=== PATIENT | female | born 1930 | race Caucasian/White ===

== ENCOUNTER 2018-08-07 14:00 | Inpatient (IN) ==
[2018-08-07] MEDS ORDERED: Lactulose Oral Soln 20 GM/30 ML UDC PO PRN (15:22)
[2018-08-07] MEDS ORDERED: Magic Mouthwash 10 ML UD Cup PO PRN (15:22)
[2018-08-07] MEDS ORDERED: Benzonatate 100 MG CAPSULE PO PRN (15:22)
[2018-08-07] MEDS ORDERED: Nystatin SUSP 5 ML UD.LIQ PO PRN (15:22)
[2018-08-07] MEDS ORDERED: Ondansetron ODT 4 MG TAB.RAPDIS SL PRN (15:22)
[2018-08-07] MEDS ORDERED: Pembrolizumab 100 MG/4 ML MG IV SCH (15:30)
[2018-08-07] MEDS ORDERED: GuaiFENesin/Codeine Oral Soln 5 ML UDC PO SCH (18:00)
[2018-08-07] MEDS: metroNIDAZOLE 500 MG TABLET PO SCH (21:37)
[2018-08-07] MEDS: Mirtazapine 15 MG TABLET PO SCH (21:38)
[2018-08-07] MEDS: GuaiFENesin Liq 200 MG/10 ML UDC PO PRN (21:49)
[2018-08-07] MEDS: traMADol 50 MG TABLET PO PRN (21:49)
[2018-08-07] MEDS: traZODone 50 MG TABLET PO SCH (23:00)
[2018-08-08] MEDS: traMADol 50 MG TABLET PO PRN (06:56)
[2018-08-08] MEDS: metroNIDAZOLE 500 MG TABLET PO SCH ×2 (08:30→21:30)
[2018-08-08] MEDS ORDERED: Nitroglycerin 0.4 MG TAB.SUBL SL PRN (09:00)
[2018-08-08] MEDS ORDERED: ZONISAMIDE 100 MG PO SCH (09:00)
[2018-08-08] MEDS: Propranolol LA (24 HR) 60 MG CAP.SA.24H PO SCH (09:36)
--- NOTE | 2018-08-08 13:57 | Internal Med History&Physical ---
Date of Encounter: 08/08/18 Time of Encounter: 11:20 Assessment and Plan (1) Diffuse large B-cell lymphoma of extranodal site Current visit: No Status: Chronic For hospice comfort care respite. Internal Medicine - H&P: HPI Admitted From: Home Plans for Post Hospital Care: Hospice - Home History of present illness: Ms. Anne is a 87 year old female with a history of large cell lymphoma. She is DNR CC and is here for respite with hospice. I am told that she simply needs a note from me and that all care will be provided by nursing and hospice. The patient denies current needs or acute complaints. Past Med Surg Social Fam HX - Past Medical History Medical history: cancer, CVA, TIA Additional medical history: Lymphoma (nose and sinus). Lung, liver and rib cancer. Pneumonitis. PE both lungs. Psychiatric history: depression - Past Surgical History Surgical History: angioplasty/stent, cholecystectomy, hysterectomy Additional surgical history: Lt knee replacement. D&C's, Rt foot surgery. Bilateral carpal tunnel release. - Social History Smoking Status: Never smoker Smokeless Tobacco Status: No Alcohol use: occasionally Drug use: none - Family History Mother Living Status: Father Living Status: Internal Medicine - H&P: Meds Levothyroxine [Synthroid] 100 mcg PO 0630 01/20/15 [History] Buspirone HCl [Buspar] 10 mg PO TID 08/10/16 [History] Polyethylene Glycol 3350 [MiraLAX Powder Bulk 17.9 Oz] 1 scoop PO DAILY 08/10/16 [History] Ondansetron ODT [Zofran ODT] 4 mg SL Q8HR PRN 09/17/16 [History] Zonisamide [Zonegran] 200 mg PO DAILY 01/11/17 [History] Benzonatate [Tessalon] 100 mg PO TID PRN #60 capsule 03/01/17 [Rx] Omeprazole [PriLOSEC] 40 mg PO DAILY 03/15/17 [History] Warfarin [Coumadin] 5 mg PO DAILY 04/28/17 [History] Guaifenesin [Adult Tussin Chest Congestion] 100 mg PO TID PRN #1 bottle 08/11/17 [Rx] Albuterol Sulfate [Proair Hfa] 2 puff IH Q4HR PRN #5 inh 08/03/18 [Rx] Meclizine [Antivert] 12.5 mg PO TID PRN #30 tablet 10/25/17 [Rx] Nitroglycerin [Nitrostat] 0.6 mg SL DAILY #30 tab.subl 10/25/17 [Rx] Magic Mouthwash 5 ml PO Q4H PRN #240 ml 11/17/17 [Rx] GuaiFENesin/Codeine [ROBITUSSIN w/CODEINE] 2.5 - 5 ml PO Q6HR 20 Days #400 liquid 01/30/18 [Rx] Tramadol HCl [Ultram] 50 mg PO Q8H PRN 7 Days #21 tab 01/30/18 [Rx] traZODone [TraZODone] 50 mg PO HS #30 tablet 01/30/18 [Rx] Pembrolizumab [Keytruda] 200 mg IV Q3W #2 vial 02/08/18 [Rx] Mirtazapine [Remeron] 30 mg PO HS #30 tablet 05/04/18 [Rx] metroNIDAZOLE [Flagyl] 500 mg PO BID 10 Days #20 tablet 05/25/18 [Rx] Dronabinol [Marinol] 5 mg PO BID 08/07/18 [History] Lactulose 20 gm PO Q4H PRN 08/07/18 [History] MORPHINE SUL Oral CONC [Roxanol Oral Conc] 5 mg PO Q3H PRN 08/07/18 [History] Nystatin [Nystatin Suspension] 5 ml PO QID PRN MDD thrush 08/07/18 [History] Oxybutynin Chloride [Ditropan Xl] 5 mg PO DAILY 08/07/18 [History] Oxygen 08/07/18 [History] Propranolol [Inderal] 60 mg PO DAILY 08/07/18 [History] Zonisamide [Zonegran] 100 mg PO DAILY 08/07/18 [History] Allergy/AdvReac Type Severity Reaction Status Date / Time ciprofloxacin AdvReac Nausea Verified 05/25/18 13:55 codeine AdvReac See Verified 05/25/18 13:55 Comments All Systems PM: A 10-system review of systems was performed and is negative for pertinent findings except as documented above in the HPI. - Constitutional Vitals: Temp Pulse Resp BP Pulse Ox 97.3 F L 73 14 112/61 100 08/08/18 11:32 08/08/18 11:32 08/08/18 11:32 08/08/18 11:32 08/08/18 11:32 Exam: Examination: (Except as mentioned above): General: In no apparent distress. Alert and oriented 3. Nondiaphoretic. She is markedly pallid. Head: Atraumatic and normocephalic. Respiratory: No use of accessory muscles. Lungs are clear throughout. Normal airflow. Cardiovascular: Regular rate and rhythm without murmur appreciated. Abdomen: Bowel sounds are normal. No hepatosplenomegaly mass or tenderness appreciated. Obese and therefore difficult to palpate deeply. Extremities: No cyanosis clubbing or edema. Skin: Warm and non-diaphoretic with no new lesions noted.
[2018-08-08] MEDS ORDERED: *HR* Warfarin 5 MG TABLET PO SCH (18:00)
[2018-08-08] MEDS: GuaiFENesin Liq 200 MG/10 ML UDC PO PRN (19:30)
[2018-08-08] MEDS: Albuterol 2.5 MG/3 ML NEBULIZER IH PRN (19:35)
[2018-08-08] MEDS: traZODone 50 MG TABLET PO SCH (21:30)
[2018-08-08] MEDS: Mirtazapine 15 MG TABLET PO SCH (21:30)
[2018-08-09] MEDS: Albuterol 2.5 MG/3 ML NEBULIZER IH PRN (07:18)
[2018-08-09] MEDS: metroNIDAZOLE 500 MG TABLET PO SCH ×2 (08:30→20:58)
[2018-08-09] MEDS: Propranolol LA (24 HR) 60 MG CAP.SA.24H PO SCH ×2 (08:33→12:35)
[2018-08-09] MEDS: traMADol 50 MG TABLET PO PRN (12:35)
[2018-08-09] MEDS: traZODone 50 MG TABLET PO SCH (20:58)
[2018-08-09] MEDS: Mirtazapine 15 MG TABLET PO SCH (21:04)
[2018-08-10] MEDS: Albuterol 2.5 MG/3 ML NEBULIZER IH PRN ×3 (07:09→21:15)
[2018-08-10] MEDS: metroNIDAZOLE 500 MG TABLET PO SCH ×2 (09:04→20:50)
[2018-08-10] MEDS: Propranolol LA (24 HR) 60 MG CAP.SA.24H PO SCH (09:04)
[2018-08-10] MEDS: traMADol 50 MG TABLET PO PRN (20:50)
[2018-08-10] MEDS: Mirtazapine 15 MG TABLET PO SCH (20:50)
[2018-08-10] MEDS: traZODone 50 MG TABLET PO SCH (20:50)
[2018-08-11] MEDS: Albuterol 2.5 MG/3 ML NEBULIZER IH PRN (07:24)
[2018-08-11] MEDS: Propranolol LA (24 HR) 60 MG CAP.SA.24H PO SCH (08:14)
[2018-08-11] MEDS: metroNIDAZOLE 500 MG TABLET PO SCH ×2 (08:14→22:17)
[2018-08-11] MEDS: Morphine Sulfate Oral CONC 10 MG/0.5 ML ORAL.SYG PO PRN (18:40)
[2018-08-11] MEDS: traZODone 50 MG TABLET PO SCH (22:16)
[2018-08-11] MEDS: Mirtazapine 15 MG TABLET PO SCH (22:16)
[2018-08-12] MEDS: Morphine Sulfate Oral CONC 10 MG/0.5 ML ORAL.SYG PO PRN (04:15)
[2018-08-12 08:45] VITALS: BP 179/80
[2018-08-12] MEDS: metroNIDAZOLE 500 MG TABLET PO SCH (09:15)
[2018-08-12] MEDS: Propranolol LA (24 HR) 60 MG CAP.SA.24H PO SCH (09:16)
--- NOTE | 2018-08-14 09:10 | Discharge Summary ---
Date of Encounter: 08/12/18 Time of Encounter: 12:00 - Discharge Diagnosis (1) Diffuse large B-cell lymphoma of extranodal site Priority: Primary Status: Chronic Hospital course: Ms. Anne is a 88 year old female who was here for a hospice respite admission and we did not care for patient. - Time Spent with Patient Total time spent providing and/or coordinating discharge services: - Discharge Medications Prescriptions: No Action Levothyroxine [Synthroid] 100 mcg PO 0630 Polyethylene Glycol 3350 [MiraLAX Powder Bulk 17.9 Oz] 1 scoop PO DAILY Buspirone HCl [Buspar] 10 mg PO TID Ondansetron ODT [Zofran ODT] 4 mg SL Q8HR PRN PRN Reason: Nausea Zonisamide [Zonegran] 200 mg PO DAILY Benzonatate [Tessalon] 100 mg PO TID PRN #60 capsule PRN Reason: Cough Omeprazole [PriLOSEC] 40 mg PO DAILY Warfarin [Coumadin] 5 mg PO DAILY Guaifenesin [Adult Tussin Chest Congestion] 100 mg PO TID PRN #1 bottle PRN Reason: Cough Albuterol Sulfate [Proair Hfa] 2 puff IH Q4HR PRN #5 inh PRN Reason: Shortness Of Breath Meclizine [Antivert] 12.5 mg PO TID PRN #30 tablet PRN Reason: Dizziness Nitroglycerin [Nitrostat] 0.6 mg SL DAILY #30 tab.subl Magic Mouthwash 5 ml PO Q4H PRN #240 ml PRN Reason: Mouth Irritation traZODone [TraZODone] 50 mg PO HS #30 tablet GuaiFENesin/Codeine [ROBITUSSIN w/CODEINE] 2.5 - 5 ml PO Q6HR 20 Days #400 liquid Tramadol HCl [Ultram] 50 mg PO Q8H PRN 7 Days #21 tab PRN Reason: Pain Pembrolizumab [Keytruda] 200 mg IV Q3W #2 vial Mirtazapine [Remeron] 30 mg PO HS #30 tablet metroNIDAZOLE [Flagyl] 500 mg PO BID 10 Days #20 tablet Zonisamide [Zonegran] 100 mg PO DAILY Lactulose 20 gm PO Q4H PRN PRN Reason: Pain Nystatin [Nystatin Suspension] 5 ml PO QID PRN MDD thrush PRN Reason: sore mouth Propranolol [Inderal] 60 mg PO DAILY Dronabinol [Marinol] 5 mg PO BID Oxybutynin Chloride [Ditropan Xl] 5 mg PO DAILY Oxygen MORPHINE SUL Oral CONC [Roxanol Oral Conc] 5 mg PO Q3H PRN PRN Reason: Pain Home Medications: Levothyroxine [Synthroid] 100 mcg PO 0630 01/20/15 [History] Buspirone HCl [Buspar] 10 mg PO TID 08/10/16 [History] Polyethylene Glycol 3350 [MiraLAX Powder Bulk 17.9 Oz] 1 scoop PO DAILY 08/10/16 [History] Ondansetron ODT [Zofran ODT] 4 mg SL Q8HR PRN 09/17/16 [History] Zonisamide [Zonegran] 200 mg PO DAILY 01/11/17 [History] Benzonatate [Tessalon] 100 mg PO TID PRN #60 capsule 03/01/17 [Rx] Omeprazole [PriLOSEC] 40 mg PO DAILY 03/15/17 [History] Warfarin [Coumadin] 5 mg PO DAILY 04/28/17 [History] Guaifenesin [Adult Tussin Chest Congestion] 100 mg PO TID PRN #1 bottle 08/11/17 [Rx] Albuterol Sulfate [Proair Hfa] 2 puff IH Q4HR PRN #5 inh 09/30/17 [Rx] Meclizine [Antivert] 12.5 mg PO TID PRN #30 tablet 10/25/17 [Rx] Nitroglycerin [Nitrostat] 0.6 mg SL DAILY #30 tab.subl 10/25/17 [Rx] Magic Mouthwash 5 ml PO Q4H PRN #240 ml 11/17/17 [Rx] GuaiFENesin/Codeine [ROBITUSSIN w/CODEINE] 2.5 - 5 ml PO Q6HR 20 Days #400 liquid 01/30/18 [Rx] Tramadol HCl [Ultram] 50 mg PO Q8H PRN 7 Days #21 tab 01/30/18 [Rx] traZODone [TraZODone] 50 mg PO HS #30 tablet 01/30/18 [Rx] Pembrolizumab [Keytruda] 200 mg IV Q3W #2 vial 02/08/18 [Rx] Mirtazapine [Remeron] 30 mg PO HS #30 tablet 05/04/18 [Rx] metroNIDAZOLE [Flagyl] 500 mg PO BID 10 Days #20 tablet 05/25/18 [Rx] Dronabinol [Marinol] 5 mg PO BID 08/07/18 [History] Lactulose 20 gm PO Q4H PRN 08/07/18 [History] MORPHINE SUL Oral CONC [Roxanol Oral Conc] 5 mg PO Q3H PRN 08/07/18 [History] Nystatin [Nystatin Suspension] 5 ml PO QID PRN MDD thrush 08/07/18 [History] Oxybutynin Chloride [Ditropan Xl] 5 mg PO DAILY 08/07/18 [History] Oxygen 08/07/18 [History] Propranolol [Inderal] 60 mg PO DAILY 08/07/18 [History] Zonisamide [Zonegran] 100 mg PO DAILY 08/07/18 [History] Allergies/Adverse Reactions: Allergy/AdvReac Type Severity Reaction Status Date / Time ciprofloxacin AdvReac Nausea Verified 05/25/18 13:55 codeine AdvReac See Verified 05/25/18 13:55 Comments Date of admission: 08/07/18 14:14 Primary care physician: Oseas Gomez MD Discharging clinician: Alberto Abrams Anticipated date of discharge: 08/12/18 - Constitutional Vitals: Temp Pulse Resp BP Pulse Ox 97.7 F 67 14 179/80 99 08/12/18 07:20 08/12/18 07:20 08/12/18 07:20 08/12/18 07:20 08/12/18 09:15 - Patient Status Disposition: Hospice - Home - Discharge Instructions Follow Up With: Oseas Gomez MD [Primary Care Provider] - Additional Instructions: PT TO RETURN TO HOSPICE CARE AND RESUME [facility] NURSE AWARE OF DISCHARGE TODAY
== END 2018-08-12 13:00 | disposition hospice, home (50) | DRG 842 ==
LOC: INPGRE 14:14